=== PATIENT | female | born 1995 | race African-American/Black ===

== ENCOUNTER 2017-02-02 15:18 | Emergency (ER) | payer OTHER ==
[~2017-02-02] VITALS: Ht 165.1 cm; Wt 70.0 kg
[2017-02-02 15:19] VITALS: BP 116/68; PULSE 106; RESP 14; TEMP 99.2; O2SAT 97
--- NOTE | 2017-02-02 18:42 | PD ---
HPI Chief Complaint: Skein Yarn Dyer Problem/Complaint Time Seen by Provider: 17:52 Travel History International Travel<30 days: No Contact w/Intl Traveler<30days: No Traveled to known affect area: No History of Present Illness HPI 20-year-old female since emergency department for evaluation of a foul-smelling vaginal discharge for one week. Patient reports multiple episodes of bacterial vaginosis in the past with similar symptoms. Patient reports that she is sexually active but uses condoms with each intercourse. She denies fever, chills, abdominal pain, dysuria. Patient has IUD. PFSH Past Medical History Medical History: Denies Significant Hx ?: Not LMP: na Past Surgical History Surgical History: No Previous Surgery Social History Alcohol Use: No Tobacco Use: No Substance Use: No Allergies-Medications (Allergen,Severity, Reaction): Coded Allergies: No Known Allergies (Unverified , 02/02/17) Review of Systems Except as stated in HPI: all other systems reviewed are Neg Physical Exam Narrative GENERAL: Well-nourished, well-developed patient. SKIN: Focused skin assessment warm/dry. HEAD: Normocephalic. EYES: No scleral icterus. No injection or drainage. NECK: Supple, trachea midline. No JVD or lymphadenopathy. CARDIOVASCULAR: Regular rate and rhythm without murmurs, gallops, or rubs. RESPIRATORY: Breath sounds equal bilaterally. No accessory muscle use. GASTROINTESTINAL: Abdomen soft, non-tender, nondistended. : External genitalia without lesions, thin watery discharge in the vaginal vault, no cervicitis, no cervical motion tenderness. Data Data Last Documented VS Vital Signs Date Time Temp Pulse Resp B/P (MAP) Pulse Ox O2 Delivery O2 Flow Rate FiO2 02/02/17 15:19 99.2 106 14 116/68 (84) 97 Orders Orders Gc And Chlamydia Pcr (02/02/17 18:00) Wet Prep Profile (02/02/17 18:00) Ed Urine Pregnancytest Poc (02/02/17 18:00) Labs Laboratory Tests Test 02/02/17 18:08 Clue Cells (Wet Prep) PRESENT Vaginal Trichomonas (Wet Prep) NONE SEEN Vaginal Yeast (Wet Prep) NONE SEEN MDM Medical Decision Making Medical Screen Exam Complete: Yes Emergency Medical Condition: Yes Differential Diagnosis UTI, BV, vaginal yeast, cervicitis, STI Narrative Course 21-year-old female with chief complaint of foul-smelling vaginal discharge times one week. Patient reports frequent bacterial vaginosis infections. She reports the symptoms are similar. Patient is sexually active but is adamant that she uses condoms with each sexual encounter. She has no concern of STI. Pelvic exam reveal no cervicitis or cervical motion tenderness. Wet prep: + clue cells Urine POC negative Patient be treated with metronidazole vaginal gel for bacterial vaginosis. She was instructed to follow-up with her TUYERE FITTER. Diagnosis Primary Impression: Bacterial vaginosis Referrals: Cemetery Warden Additional Instructions: Using MetroGel as prescribed. Follow-up with her GLASSWARE MAKER DEMONSTRATOR for recheck. Return to emergency department if he developed new or worsening symptoms. Scripts Metronidazole Vaginal Gel (Metronidazole Vaginal Gel) 0.75 % Gel 1 APPL VAGINAL HS for Infection for 7 Days, GM 0 Refills Prov: Cari Verduzco 02/02/17 Disposition: 01 DISCHARGE HOME Condition: Stable Cari Verduzco Feb 02, 2017 18:42
[2017-02-02] MEDS ORDERED: METR0.7512 VAGINAL (18:57)
[2017-02-02 19:17] VITALS: BP 105/60
[2017-02-02 20:39] LABS: CHLAMYDIA PCR NOT DETECTED (NOT DETECT); NEISSERIA PCR NOT DETECTED (NOT DETECT)
== END 2017-02-02 19:27 | disposition home or self-care (01) ==
LOC: NEPD 15:18
DX: N76.0 Acute vaginitis (principal)
CPT/HCPCS: 84703; 87210; 87491; 87591; 99283

== ENCOUNTER 2017-02-15 04:05 | Emergency (ER) | payer OTHER ==
[~2017-02-15] VITALS: Ht 165.1 cm; Wt 68.0 kg
[~2017-02-15 04:05] MED LIST: METR0.7512 VAGINAL
[2017-02-15 04:07] VITALS: BP 109/59; PULSE 79; RESP 16; TEMP 97.9; O2SAT 98
[2017-02-15] MEDS ORDERED: TRIAM.1%T TOPICAL (05:48)
--- NOTE | 2017-02-15 05:48 | PD ---
HPI Chief Complaint: Collision Repairer Problem/Complaint Time Seen by Provider: 05:00 Travel History International Travel<30 days: No Contact w/Intl Traveler<30days: No Traveled to known affect area: No History of Present Illness HPI Patient is a 21-year-old female presenting to the emergency department for evaluation of Perineal itching for the last 4 days since she completed a course of metronidazole. Patient states she was treated for bacterial vaginosis, and when she completed that course she started having external itching. She reports using a new pantiliner. She denies any vaginal discharge, bleeding, abdominal pain, fevers. She denies any open sores or wounds. She denies any sexual contact. PFS Past Medical History Medical History: Denies Significant Hx ?: Not LMP: N/A Past Surgical History Surgical History: No Previous Surgery Social History Alcohol Use: Yes (RARE) Tobacco Use: No Substance Use: No Allergies-Medications (Allergen,Severity, Reaction): Coded Allergies: No Known Allergies (Unverified , 02/15/17) Reported Meds & Prescriptions Reported Meds & Active Scripts Active Triamcinolone Topical (Triamcinolone Acetonide) 0.1 % Oint 1 Applic TOPICAL DAILY 7 Days For external use only Review of Systems Except as stated in HPI: all other systems reviewed are Neg Skin: Positive Itching Physical Exam Narrative GENERAL: Well-developed, well-nourished, alert female. Resting comfortably in no acute distress. SKIN: Warm and dry. HEAD: Normocephalic. EYES: No scleral icterus. No injection or drainage. NECK: Supple, trachea midline. No JVD or lymphadenopathy. CARDIOVASCULAR: Regular rate and rhythm without murmurs, gallops, or rubs. RESPIRATORY: Breath sounds equal bilaterally. No accessory muscle use. GASTROINTESTINAL: Abdomen soft, non-tender, nondistended. GENITOURINARY: Normal external genitalia without lesions or erythema. Vaginal vault without blood or drainage. Cervical os was closed without drainage. No cervical motion tenderness. Uterus nontender and nonenlarged. Bilateral adnexa nontender without masses. MUSCULOSKELETAL: No cyanosis, or edema. BACK: Nontender without obvious deformity. No CVA tenderness. Data Data Last Documented VS Vital Signs Date Time Temp Pulse Resp B/P (MAP) Pulse Ox O2 Delivery O2 Flow Rate FiO2 02/15/17 05:49 02/15/17 04:07 97.9 79 16 98 Room Air Orders Orders Wet Prep Profile (02/15/17 05:00) Ed Discharge Order (02/15/17 05:48) Labs Laboratory Tests Test 02/15/17 05:15 Clue Cells (Wet Prep) NONE SEEN Vaginal Trichomonas (Wet Prep) NONE SEEN Vaginal Yeast (Wet Prep) NONE SEEN MDM Medical Decision Making Medical Screen Exam Complete: Yes Emergency Medical Condition: Yes Medical Record Reviewed: Yes Interpretation(s) Laboratory Tests Test 02/15/17 05:15 Clue Cells (Wet Prep) NONE SEEN Vaginal Trichomonas (Wet Prep) NONE SEEN Vaginal Yeast (Wet Prep) NONE SEEN Vital Signs Date Time Temp Pulse Resp B/P (MAP) Pulse Ox O2 Delivery O2 Flow Rate FiO2 02/15/17 05:49 02/15/17 04:07 97.9 79 16 109/59 (76) 98 Room Air Differential Diagnosis Bacterial vaginosis versus contact dermatitis versus candidiasis versus other Narrative Course Patient is a 21-year-old female that presented for evaluation of perineal itching. She was recently treated for bacterial vaginosis. We'll repeat wet prep. Her symptoms are likely secondary to dermatitis from the new panty liners. Patient's vital signs are stable and she is resting comfortably. Repeat wet prep is negative. Patient will be provided with a prescription for triamcinolone. She was advised to use on the external labia majora only. She is advised to apply lightly. She was advised to avoid use of pain Her. She is encouraged follow-up with her cab driver. She was further encouraged to return to emergency department for any new or worsening symptoms. She verbalized understanding of instructions. Patient is stable for discharge. Diagnosis Primary Impression: Contact dermatitis Qualified Codes: L25.9 - Unspecified contact dermatitis, unspecified cause Referrals: Primary Care Physician Patient Instructions: Contact Dermatitis (ED), General Instructions Additional Instructions: Avoid use of pantiliners Follow-up with your primary doctor Use medication as directed, use externally only Return to emergency department for any new or worsening symptoms Med/Other Pt SpecificInfo: Prescription(s) given Scripts Triamcinolone Topical (Triamcinolone Topical) 0.1 % Oint 1 APPLIC TOPICAL DAILY for Inflammation for 7 Days, GM 0 Refills For external use only Prov: Sharona Lucas 02/15/17 Disposition: 01 DISCHARGE HOME Condition: Stable Sharona Lucas Feb 15, 2017 05:48
== END 2017-02-15 06:02 | disposition home or self-care (01) ==
LOC: NEPD 04:05
DX: L25.9 Unspecified contact dermatitis, unspecified cause (principal)
CPT/HCPCS: 87210; 99283